=== PATIENT | female | born 1945 | race Caucasian/White ===

== ENCOUNTER 2021-11-27 17:00 | Emergency (ER) | payer MEDICARE, SELFPAY ==
[2021-11-27 17:15] VITALS: BP 155/80; PULSE 74; RESP 16; TEMP 36.7; O2SAT 99; BMI 21.2
--- NOTE | 2021-11-27 17:21 | DI.RAD.S_ITS ---
PROCEDURE: XR KNEE RT 3V INDICATIONS: fall TECHNIQUE: 2 views of the knee were acquired. COMPARISON: None. FINDINGS: Bones: No fractures or dislocations. No suspicious bony lesions. Soft tissues: No joint effusion. No suspicious soft tissue calcifications. IMPRESSION: Unremarkable right knee radiographs Approved by: Robbie Valdez M.D. on 11/27/2021 at 17:02
--- NOTE | 2021-11-27 17:23 | DI.RAD.S_ITS ---
PROCEDURE: XR THORACIC SPINE 3V INDICATIONS: fall TECHNIQUE: 2 views of the thoracic spine were acquired. COMPARISON: None. FINDINGS: Bones: No fractures or dislocations. No suspicious bony lesions. 12 pairs of ribs are noted, and appear intact where visualized. Soft tissues: No paravertebral stripe thickening. IMPRESSION: Normal thoracic spine radiographs Approved by: Robbie Valdez M.D. on 11/27/2021 at 17:03
[2021-11-27] MEDS: CYCLOBENZAPRINE 10 MG PREPACK 1 BOTTLE MISC (19:14)
[2021-11-27] MEDS: CYCLOBENZAPRINE 10 MG TABLET PO (19:16)
[2021-11-27] MEDS: KETOROLAC 10 MG TABLET PO (19:17)
[2021-11-27] MEDS: ACETAMINOPHEN 325 MG TABLET 975 MG PO (19:17)
--- NOTE | 2021-11-27 19:19 | ED_ITS ---
HPI - Extremity Injury (Lower) <JANELL Reynolds - Last Filed: 11/27/21 20:39> General Chief Complaint: Extremity Injury, Lower Stated Complaint: GLF RIGHT SIDE Time Seen by Provider: 11/27/21 18:41 Source: patient Mode of arrival: Family Vehicle History of Present Illness HPI Narrative: This is a 76-year-old female presents to the emergency department after ground level fall which happened earlier today onto her right side. Patient denies head injury, loss of consciousness, altered mental status, complains of right- sided rib pain and posterior thoracic back pain, right-sided knee pain. She is ambulatory with a steady gait, denies any weakness, denies any sensation changes, denies any difficulty with deep inspiration, denies any new feelings of shortness of breath or fatigue. She denies any open wounds. Related Data Previous Rx's Medication Instructions Recorded diclofenac sodium 3 % topical gel 1 applic topical BID PRN Knee pain 11/27/21 #100 grams Allergies Allergy/AdvReac Type Severity Reaction Status Date / Time hydrocodone AdvReac Nausea Verified 11/27/21 19:18 oxycodone AdvReac Nausea Verified 11/27/21 19:18 Review of Systems <JANELL Reynolds - Last Filed: 11/27/21 20:39> Review of Systems Narrative: General: denies fever, chills, malaise, sweats, fatigue Head/Neck: denies headache, neck pain, dizziness Eyes: denies visual changes, eye pain Cardio: denies chest pain, palpitations, edema Respiratory: denies dyspnea, cough, orthopnea GI: denies abdominal pain, nausea, vomiting, or diarrhea : denies dysuria, hematuria, urinary retention, frequency or incontinence MSK: Endorses right-sided knee pain and thoracic back pain on the right side, Denies any muscle weakness Skin: denies rash, itching, skin lesions or other Neuro: denies numbness, tingling Patient History <JANELL Reynolds - Last Filed: 11/27/21 20:39> Social History Smoking Status: Never smoker Smoking Status: Never smoker alcohol intake frequency: 0-2 drinks per day Substance Use Type: does not use Exam <HEMALATHA ReynoldsP - Last Filed: 11/27/21 20:39> Narrative Exam Narrative: Independently reviewed vitals signs and nursing notes. General: cooperative, comfortable, in no acute distress, well groomed Head: atraumatic, symmetrical facial expressions Neck: supple Eyes: equal round and reactive, EOMI, conjunctiva normal Nose: nares patent, no rhinorrhea Mouth/Throat: moist mucus membranes Cardiovascular: regular rate and rhythm, no peripheral edema, warm extremities Respiratory: normal effort, able to speak in complete sentences, no audible wheezing, stridor, or rales. No retractions or tachypnea. GI: abdomen soft, nontender to palpation, nondistended, no masses, no exquisite tenderness with exam, without guarding or rebound. MSK: moves all extremities, neurovascularly intact, no weakness, normal tone, mild ecchymosis and suprapatellar edema palpable to right knee, no open wound, and mild tenderness over LCL but feels intact, patellar tendon feels intact mild tenderness there, Santino's negative, no tenderness over MCL or patella, no crepitus. Mild ecchymosis and contusion over her right thoracic area where she fell, no crepitus, no surrounding erythema or irregularity over her ribs Skin: brisk capillary refill, no rash, no erythema Neuro: normal speech and cognition, A&O x3 Psych: mental status is grossly normal, congruent mood, normal affect, pleasant and cooperative Initial Vital Signs Initial Vital Signs: Vital Signs Temperature 98.1 F 11/27/21 17:15 Pulse Rate 74 11/27/21 17:15 Respiratory Rate 16 11/27/21 17:15 Blood Pressure 155/80 H 11/27/21 17:15 Pulse Oximetry 99 11/27/21 17:15 Oxygen Delivery Method 11/27/21 17:15 <Eveline Mercado DO - Last Filed: 11/27/21 23:15> Initial Vital Signs Initial Vital Signs: Vital Signs Temperature 98.1 F 11/27/21 17:15 Pulse Rate 74 11/27/21 17:15 Respiratory Rate 16 11/27/21 17:15 Blood Pressure 155/80 H 11/27/21 17:15 Pulse Oximetry 99 11/27/21 17:15 Oxygen Delivery Method 11/27/21 17:15 Course <HEMALATHA ReynoldsP - Last Filed: 11/27/21 20:39> Orders Ordered: ED Orders 11/27/21 17:21 XR knee RT 3V Stat 11/27/21 17:23 XR thoracic spine 3V Stat Discontinued Medications Acetaminophen (Acetaminophen 325 Mg Tablet) 975 mg PO NOW ONE Stop: 11/27/21 19:01 Last Admin: 11/27/21 19:17 Dose: 975 mg Documented By: RL Hydrocodone Bitart/Acetaminophen (Hydrocodone/Acet 5/325 Prepack) 1 bottle MISC SEEINSTR ONE Stop: 11/27/21 19:02 Last Admin: 11/27/21 19:17 Dose: Not Given Documented By: RL Cyclobenzaprine HCl (Cyclobenzaprine 10 Mg Tablet) 10 mg PO NOW ONE Stop: 11/27/21 19:01 Last Admin: 11/27/21 19:16 Dose: 10 mg Documented By: RL Cyclobenzaprine HCl (Cyclobenzaprine 10 Mg Prepack) 1 bottle MISC SEEINSTR ONE Stop: 11/27/21 19:03 Last Admin: 11/27/21 19:14 Dose: 1 bottle Documented By: GAGE Ketorolac Tromethamine (Ketorolac 10 Mg Tablet) 10 mg PO NOW ONE Stop: 11/27/21 19:01 Last Admin: 11/27/21 19:17 Dose: 10 mg Documented By: GAGE Vital Signs Vital signs: Vital Signs - 8 hr 11/27/21 17:15 11/27/21 19:26 Temperature 98.1 F Pulse Rate 74 Respiratory Rate 16 Blood Pressure 155/80 H 168/79 H Pulse Oximetry 99 Oxygen Delivery Method Room Air Room Air <Eveline Mercado DO - Last Filed: 11/27/21 23:15> Orders Ordered: ED Orders 11/27/21 17:21 XR knee RT 3V Stat 11/27/21 17:23 XR thoracic spine 3V Stat Discontinued Medications Acetaminophen (Acetaminophen 325 Mg Tablet) 975 mg PO NOW ONE Stop: 11/27/21 19:01 Last Admin: 11/27/21 19:17 Dose: 975 mg Documented By: RL Hydrocodone Bitart/Acetaminophen (Hydrocodone/Acet 5/325 Prepack) 1 bottle MISC SEEINSTR ONE Stop: 11/27/21 19:02 Last Admin: 11/27/21 19:17 Dose: Not Given Documented By: GAGE Cyclobenzaprine HCl (Cyclobenzaprine 10 Mg Tablet) 10 mg PO NOW ONE Stop: 11/27/21 19:01 Last Admin: 11/27/21 19:16 Dose: 10 mg Documented By: GAGE Cyclobenzaprine HCl (Cyclobenzaprine 10 Mg Prepack) 1 bottle MISC SEEINSTR ONE Stop: 11/27/21 19:03 Last Admin: 11/27/21 19:14 Dose: 1 bottle Documented By: GAGE Ketorolac Tromethamine (Ketorolac 10 Mg Tablet) 10 mg PO NOW ONE Stop: 11/27/21 19:01 Last Admin: 11/27/21 19:17 Dose: 10 mg Documented By: GAGE Vital Signs Vital signs: Vital Signs - 8 hr 11/27/21 17:15 11/27/21 19:26 Temperature 98.1 F Pulse Rate 74 Respiratory Rate 16 Blood Pressure 155/80 H 168/79 H Pulse Oximetry 99 Oxygen Delivery Method Room Air Room Air MDM - Extremity Injury (Lower) <Pati Morrison [facility] - Last Filed: 11/27/21 20:39> Imaging Data Extremity x-ray #1: Radiologist's Impression: PROCEDURE:? XR KNEE RT 3V ? INDICATIONS:? fall ? TECHNIQUE:? 2 views of the knee were acquired.? ? COMPARISON:? None. ? FINDINGS:? ? Bones:? No fractures or dislocations.? No suspicious bony lesions.? ? Soft tissues:? No joint effusion.? No suspicious soft tissue calcifications.? ? ? IMPRESSION:? Unremarkable right knee radiographs ? ? ? Approved by: Robbie Valdez M.D. on 11/27/2021 at 17:02? Extremity x-ray #2: Radiologist's Impression: PROCEDURE:? XR THORACIC SPINE 3V ? INDICATIONS:? fall ? TECHNIQUE:? 2 views of the thoracic spine were acquired.? ? COMPARISON:? None. ? FINDINGS:? ? Bones:? No fractures or dislocations.? No suspicious bony lesions.? 12 pairs of ribs are noted, and appear intact where visualized.? ? Soft tissues:? No paravertebral stripe thickening.? ? ? IMPRESSION:? Normal thoracic spine radiographs ? ? ? Approved by: Robbie Valdez M.D. on 11/27/2021 at 17:03? [facility] Narrative Medical decision making narrative: This is a pleasant 76-year-old female who is otherwise healthy, had a ground level mechanical fall today after she tripped and fell forward onto her right side. She has a small contusion on her right thoracic posterior ribs, endorses right knee pain but is ambulatory without range of motion deficit, sensation changes, or weakness. X-ray of her thoracic spine is normal without any fractures, dislocations, or suspicious abnormalities. Twelve pairs of ribs are noted and appear intact, knee x-ray is unremarkable without joint effusion, michael picious bony lesions, or fracture. Patient is ambulatory without any weakness, she is traveling to [facility] back to her other home today tomorrow, states she will follow-up with orthopedics if she has worsening or ongoing pain related to her knee. She was given a prepack of Flexeril, denied wanting any hydrocodone as she says it makes her nauseated. She was given a prescription of diclofenac gel, encouraged to use Tylenol and Aleve at home as tolerated for her pain, to stay active and do light range of motion and walking frequently throughout the day without any significant activity or over exertion. Patient has mild tenderness over her LCL of her right knee, no other abnormal finding, Santino test was negative, denies any sensation of instability. Patient is appropriate and amenable to discharge home. Vital signs are stable on repeat examination is unremarkable. Patient has been informed of results. Patient has been given strict return to ER precautions for any new or worsening symptoms. Patient understands to follow up closely with outpatient providers as instructed. Patient understands plan and agrees to discharge home. All questions and concerns answered at this time. Discharge Plan Departure Patient Disposition: Home Clinical Impression: Fall Qualifiers: Encounter type: initial encounter Qualified Code(s): W19.XXXA - Unspecified fall, initial encounter Injury of knee Qualifiers: Encounter type: initial encounter Laterality: right Qualified Code(s): S89.91XA - Unspecified injury of right lower leg, initial encounter Back pain, thoracic Qualifiers: Chronicity: acute Back pain laterality: right Qualified Code(s): M54.6 - Pain in thoracic spine Instructions: DI for Costochondritis, DI for Knee Pain Activity Restrictions/Additional Instructions: *You have been diagnosed with right knee injury, a contusion with hematoma on your right ribs, and new thoracic back pain. These injuries will likely improve over the next 1-2 weeks. Please use ice, topical Voltaren gel, and muscle relaxers as needed for your pain symptoms. Please also use Tylenol 650 mg every 6 hours and Aleve with food and water for additional pain coverage. Please try and stay mobile, get up and walk around every hour so. This will help prevent your knee from getting too stiff. Please remember to take deep breaths frequently throughout the day to help avoid pneumonia. Follow-up with your [facility] doctor if you continue to have knee pain or rib pain and ask for a physical therapy referral if you need one. Thank you for trusting us with your care, I hope you feel better soon. Your x-rays were negative for any fracture, this is most likely soft tissue injury which may take 1-2 weeks to heal. Continue to stay active and hydrated. *What to do: *Please continue to take your regular medications as directed. [ ] New medication prescriptions sent to your pharmacy: [ ] [ x] New medication written as a paper prescription [ ] No new medications given *Please follow up with your primary care provider in 2-3 days, call for an appointment. Let them know you were seen in the Emergency Department and that we asked that you be seen for follow-up. We will electronically transmit a record of today's note if your PCP is in our system *If you do not have a primary care provider please contact [phone] to establish care with one of [facility] primary care providers. *Return to Emergency Department if you should have any new, worsening or concerning symptoms, such as [fever greater than 101F, chills, worsening pain, persistent vomiting or other bothersome symptoms] Prescriptions: New diclofenac sodium 3 % gel 1 applic topical BID PRN (Reason: Knee pain) Qty: 100 0RF Rx Instructions: Please apply one application using the applicator to your right knee up to 3 times daily Referrals: [facility] [Provider Group] Visit Report Forms: Patient Portal/API <Eveline Mercado DO - Last Filed: 11/27/21 23:15> [facility] I was immediately available in the department for consultation. Documentation has been reviewed. I agree with assessment and plan.
[2021-11-27 19:26] VITALS: BP 168/79
== END 2021-11-27 19:29 | disposition home or self-care (01) ==
PROVIDERS: Emergency Provider Nurse Practitioner Critical Care Medicine
DX: S89.91XA Unspecified injury of right lower leg, initial encounter (principal); M54.6 Pain in thoracic spine; R07.81 Pleurodynia; W18.30XA Fall on same level, unspecified, initial encounter
CPT/HCPCS: 72072; 73562; 99283

== ENCOUNTER → 2023-12-10 10:50 | Outpatient (CLI) | payer MEDICARE, SELFPAY | PROVIDERS: Visit Provider Student in an Organized Health Care Education/Training Program | DX: R30.0 Dysuria (principal) | CPT/HCPCS: 87077; 87086 ==